=== PATIENT | female | born 1995 | race Caucasian/White ===

== ENCOUNTER 2019-08-07 22:59 | Emergency (ER) | payer OTHER ==
[~2019-08-07] VITALS: Ht 154.9 cm; Wt 82.6 kg
[2019-08-08 02:01] VITALS: BP 141/81
== END 2019-08-08 02:02 | disposition home or self-care (01) ==
LOC: ED 22:59
DX: S09.90XA Unspecified injury of head, initial encounter (principal); W18.09XA Striking against other object with subsequent fall, initial encounter; Y93.89 Activity, other specified; Y92.89 Other specified places as the place of occurrence of the external cause; Y99.8 Other external cause status
CPT/HCPCS: J1885; Q0162

== ENCOUNTER 2019-11-19 04:24 | Emergency (ER) | payer OTHER ==
[~2019-11-19] VITALS: Ht 154.9 cm; Wt 86.2 kg
[2019-11-19 04:34] VITALS: Ht 154.9 cm; Wt 86.2 kg
[2019-11-19 06:06] VITALS: BP 137/93
== END 2019-11-19 06:06 | disposition home or self-care (01) ==
LOC: ED 04:24
DX: N39.0 Urinary tract infection, site not specified (principal)